=== PATIENT | male | born 1995 | race Caucasian/White ===

== ENCOUNTER 2018-04-28 20:42 | Inpatient (IN) | payer OTHER ==
[2018-04-28] MEDS: LIDOCAINE W/EPINEPHRINE 1% 20ML VIAL SC (21:15)
[2018-04-28 21:43] LABS: HEMATOCRIT 48.2 % (42.0-52.0); MEAN CORPUSCULAR HEMOGLOBIN 30.8 pg (27.0-33.0); MEAN CORPUSCULAR HGB CONC 35.3 g/dl (32.0-36.5); MEAN CORPUSCULAR VOLUME 87.3 fl (80.0-96.0); PLATELET COUNT, AUTOMATED 240 10^3/uL (150-450); RED BLOOD COUNT 5.52 10^6/uL (4.30-6.10); RED CELL DISTRIBUTION WIDTH 11.7 % (11.5-14.5); WHITE BLOOD COUNT 7.3 10^3/uL (4.0-10.0)
[2018-04-28 22:07] LABS: AMPHETAMINES LEVEL URINE NEGATIVE (NEGATIVE); BARBITURATES URINE NEGATIVE (NEGATIVE); BENZODIAZEPINES URINE NEGATIVE (NEGATIVE); CANNABINOIDS URINE NEGATIVE (NEGATIVE); COCAINE METABOLITE URINE NEGATIVE (NEGATIVE); METHADONE URINE NEGATIVE (NEGATIVE); OPIATES URINE NEGATIVE (NEGATIVE); PHENCYCLIDINE URINE NEGATIVE (NEGATIVE)
[2018-04-28 22:09] LABS: ACETAMINOPHEN LEVEL < 2.0 UG/ML (10.0-30.0); ALBUMIN 4.7 GM/DL (3.2-5.2); ALBUMIN/GLOBULIN RATIO 1.24 (1.00-1.93); ALKALINE PHOSPHATASE 105 U/L (45-117); ALT/SGPT 59 U/L (12-78); ANION GAP 8 MEQ/L (8-16); AST/SGOT 62 U/L (7-37); BILIRUBIN,DIRECT 0.1 MG/DL (0.0-0.2); BILIRUBIN,TOTAL 0.4 MG/DL (0.2-1.0); BLOOD UREA NITROGEN 13 MG/DL (7-18); CARBON DIOXIDE LEVEL 26 MEQ/L (21-32); CHLORIDE LEVEL 109 MEQ/L (98-107); CREATININE FOR GFR 1.38 MG/DL (0.70-1.30); ETHYL ALCOHOL (ETHANOL) 0.256 % (0.000-0.010); GLOMERULAR FILTRATION RATE > 60.0 (>60); GLUCOSE, FASTING 114 MG/DL (70-100); POTASSIUM SERUM 4.4 MEQ/L (3.5-5.1); SALICYLATE LEVEL < 1.7 MG/DL (5.0-30.0); SODIUM LEVEL 143 MEQ/L (136-145); TOTAL PROTEIN 8.5 GM/DL (6.4-8.2)
[2018-04-28] MEDS: diphenhydrAMINE INJ 50MG/ML VIAL (J1200) IM (22:15)
[2018-04-28] MEDS: HALOPERIDOL 5 MG/ML VIAL (J1630) IM (22:15)
[2018-04-29] MEDS: THIAMINE 100 MG TAB PO ×2 (09:00→20:03)
[2018-04-29] MEDS: MULTIVITAMINS/MINERALS THERAP 1 TAB PO (09:00)
[2018-04-29] MEDS: FOLIC ACID 1 MG TAB PO (09:00)
[2018-04-29] MEDS: ACETAMINOPHEN TAB 650MG DOSE (2X325MG) PO ×3 (09:15→20:46)
[2018-04-29] MEDS ORDERED: MOM 30ML SUSPENSION UDC PO (10:30)
[2018-04-29] MEDS ORDERED: LORazepam 2 MG TAB PO (10:30)
[2018-04-29] MEDS ORDERED: MAALOX 30 ML SUSP *UDC PO (10:30)
[2018-04-29] MEDS: NICOTINE 21MG/24HR 1 EA TRANSDERMAL TD (14:50)
[2018-04-29] MEDS: IBUPROFEN 400 MG TAB PO (18:40)
[2018-04-29] MEDS: traZODone 50 MG TAB PO (20:03)
[2018-04-29] MEDS ORDERED: IBUPROFEN 400 MG TAB PO (22:00)
[2018-04-30] MEDS: THIAMINE 100 MG TAB PO ×2 (08:25→21:12)
[2018-04-30] MEDS: MULTIVITAMINS/MINERALS THERAP 1 TAB PO (08:25)
[2018-04-30] MEDS: FOLIC ACID 1 MG TAB PO (08:26)
[2018-04-30] MEDS: IBUPROFEN 400 MG TAB PO ×2 (08:26→17:07)
[2018-04-30] MEDS: NICOTINE 21MG/24HR 1 EA TRANSDERMAL TD (08:27)
[2018-04-30] MEDS: traZODone 50 MG TAB PO (21:12)
[2018-04-30] MEDS: ACETAMINOPHEN TAB 650MG DOSE (2X325MG) PO (21:13)
[2018-05-01] MEDS: THIAMINE 100 MG TAB PO (08:25)
[2018-05-01] MEDS: FOLIC ACID 1 MG TAB PO (08:25)
[2018-05-01] MEDS: MULTIVITAMINS/MINERALS THERAP 1 TAB PO (08:25)
[2018-05-01] MEDS: NICOTINE 21MG/24HR 1 EA TRANSDERMAL TD (08:25)
[2018-05-01 11:33] LABS: ALBUMIN 4.3 GM/DL (3.2-5.2); ALBUMIN/GLOBULIN RATIO 1.23 (1.00-1.93); ALKALINE PHOSPHATASE 85 U/L (45-117); ALT/SGPT 46 U/L (12-78); ANION GAP 7 MEQ/L (8-16); AST/SGOT 42 U/L (7-37); BILIRUBIN,TOTAL 0.6 MG/DL (0.2-1.0); BLOOD UREA NITROGEN 15 MG/DL (7-18); CARBON DIOXIDE LEVEL 29 MEQ/L (21-32); CHLORIDE LEVEL 105 MEQ/L (98-107); CREATININE FOR GFR 1.32 MG/DL (0.70-1.30); GLOMERULAR FILTRATION RATE > 60.0 (>60); GLUCOSE, FASTING 92 MG/DL (70-100); POTASSIUM SERUM 4.6 MEQ/L (3.5-5.1); SODIUM LEVEL 141 MEQ/L (136-145); TOTAL PROTEIN 7.8 GM/DL (6.4-8.2)
[2018-05-02 10:23] LABS: HEPATITIS B SURFACE ANTIGEN NEGATIVE (NEGATIVE)
[2018-05-02 10:49] LABS: HEPATITIS C VIRUS ABY INDEX 0.1 INDEX (<0.8)
[2018-05-02 10:50] LABS: HEPATITIS B CORE ANTIBODY IGM NEGATIVE (NEGATIVE)
[2018-05-02 10:52] LABS: HEPATITIS A ANTIBODY IGM NEGATIVE (NEGATIVE)
== END 2018-05-01 14:25 | disposition home or self-care (01) | DRG 881 ==
LOC: M ED INP 04-29 10:18 → M PSY 04-29 11:15 → M ED 20:42
DX: F32.9 Major depressive disorder, single episode, unspecified (principal); F10.94 Alcohol use, unspecified with alcohol-induced mood disorder; F10.10 Alcohol abuse, uncomplicated; R45.851 Suicidal ideations; F41.9 Anxiety disorder, unspecified